=== PATIENT | female | born 1995 | race Caucasian/White ===

== ENCOUNTER 2021-08-05 16:40 | Emergency (ER) | payer OTHER ==
[2021-08-05] MEDS ORDERED: Ondansetron 4 MG/2 ML SDV IVPUSH ONE (17:02)
[2021-08-05] MEDS ORDERED: Sodium Chloride 0.9% 10 ML Syringe FLUSH PRN (17:02)
[2021-08-05] MEDS ORDERED: Sodium Chloride 0.9% 1,000 ML IV SCH (17:15)
--- NOTE | 2021-08-05 18:07 | EDM.PDOC ---
ED HPI GENERAL MEDICAL PROBLEM - General Chief Complaint: Abdominal Pain Stated Complaint: abdominal pain, back pain, covid, UTI Time Seen by Provider: 08/05/21 17:00 Source of Information: Reports: Patient History Limitations: Reports: No Limitations - History of Present Illness INITIAL COMMENTS - FREE TEXT/NARRATIVE: Patient presents to the ED with abdominal pain, nausea, covid 19 symtpoms and positive test on 07/31. She was seen on 07/31 when the symptoms of body aches, cough, shortness of breath, headache, fevers, loss of appetite started. She has had one dose of covid vaccine about 2 weeks prior to illness starting. She was at home, quarantining and not eating or drinking well when she developed dysuria and lower back pain. She had a telehealth visit and was started on cipro 500 mg bid for her symptoms but no urine was done. LMP started today, does not usually get cramps or low back pain. Normal bowel movement three days ago which is typical for her. No vaginal discharge, does not think she is . she started to have worse lower pelvic pain today and continued low back pain. Not eating or drinking as well as she should Onset Date: 08/04/21 Abdominal Pain Score (Numeric/FACES): 6 - Related Data Allergies Allergy/AdvReac Type Severity Reaction Status Date / Time No Known Allergies Allergy Verified 08/05/21 16:52 Home Meds: Home Meds Ciprofloxacin HCl [Cipro] 500 mg PO BID 08/05/21 [History] Past Medical History - Past Health History Medical/Surgical History: Denies Medical/Surgical History - Past Surgical History HEENT Surgical History: Reports: Tonsillectomy Female Surgical History: Reports: Section Social & Family History - Tobacco Use Tobacco Use Status *Q: Never Tobacco User - Recreational Drug Use Recreational Drug Use: No Drug Use in Last 12 Months: No ED ROS GENERAL - Review of Systems Review Of Systems: See Below Constitutional: Reports: Fever, Chills, Malaise, Weakness, Fatigue, Decreased Appetite HEENT: Reports: Other (loss of taste and smell). Denies: Nosebleed, Nose Pain, Rhinitis, Sinus Problem, Throat Pain Respiratory: Reports: Shortness of Breath, Cough. Denies: Wheezing, Pleuritic Chest Pain, Sputum, Hemoptysis Cardiovascular: Reports: Dyspnea on Exertion, Lightheadedness. Denies: Chest Pain GI/Abdominal: Reports: Abdominal Pain, Anorexia, Constipation, Decreased Appetite, Nausea. Denies: Black Stool, Bloody Stool, Diarrhea, Vomiting Musculoskeletal: Reports: Back Pain Skin: Reports: No Symptoms Neurological: Reports: Headache ED EXAM, GI/ABD - Physical Exam Exam: See Below Exam Limited By: No Limitations General Appearance: Alert, WD/WN, No Apparent Distress Eyes: Bilateral: Normal Appearance, EOMI Ears: Normal External Exam Nose: Normal Inspection, Normal Mucosa Throat/Mouth: Normal Lips, Normal Voice, Other (mild dry mucous membranes) Neck: Normal Inspection, Supple Respiratory/Chest: No Respiratory Distress, Lungs Clear, Normal Breath Sounds, Chest Non-Tender Cardiovascular: Normal Peripheral Pulses, Regular Rate, Rhythm, No Edema, No Murmur GI/Abdominal Exam: Normal Bowel Sounds, Soft, Non-Tender, No Abnormal Bruit, No Mass. No: Rigid, Rebound, Tender, Abnormal Bowel Sounds Extremities: Normal Inspection, Normal Range of Motion, Non-Tender, No Pedal Edema, Normal Capillary Refill Neurological: Alert, Oriented, CN II-XII Intact, Normal Cognition, No Motor/Sensory Deficits Course - Vital Signs Last Recorded V/S: Last Vital Signs Temp 36.3 C 08/05/21 19:26 Pulse 83 08/05/21 19:26 Resp 16 08/05/21 19:26 BP 123/64 08/05/21 19:26 Pulse Ox 98 08/05/21 19:26 - Orders/Labs/Meds Orders: Active Orders 24 hr Category Date Time Status Nurse Communication: Isolation [RC] ASDIRECTED Care 08/05/21 17:02 Active Peripheral IV Care [RC] . DIRECTED Care 08/05/21 17:02 Active Abdomen Pelvis w Cont [CT] Stat Exams 08/05/21 18:35 Taken Sodium Chloride 0.9% [Normal Saline] 1,000 ml Med 08/05/21 17:15 Active IV ASDIRECTED Sodium Chloride 0.9% [Saline Flush] Med 08/05/21 17:02 Active 10 ml FLUSH ASDIRECTED PRN Isolation [COMM] Routine Oth 08/05/21 17:02 Active Peripheral IV Insertion Adult [OM.PC] Routine Oth 08/05/21 17:02 Ordered Medication Orders Sodium Chloride (Normal Saline) 1,000 mls @ 999 mls/hr IV ASDIRECTED ALEXEI Last Admin: 08/05/21 17:40 Dose: 999 mls/hr Documented by: NIGHAT Sodium Chloride (Sodium Chloride 0.9% 10 Ml Syringe) 10 ml FLUSH ASDIRECTED PRN PRN Reason: Keep Vein Open Labs: Laboratory Tests 08/05/21 08/05/21 08/05/21 Range/Units 17:45 17:45 17:45 WBC 4.3 (4.0-10.2) K/uL RBC 4.55 (3.77-5.09) M/uL Hgb 8.3 L D (11.7-15.5) g/dL Hct 28.6 L (34.0-46.0) % MCV 62.9 L D (84.0-98.0) fL MCH 18.2 L (28.2-33.3) pg MCHC 29.0 L (31.7-36.0) g/dL RDW 21.3 H (11.2-14.1) % Plt Count 377 H (150-350) K/uL Neut % (Auto) 73.9 (45.0-80.0) % Lymph % (Auto) 17.0 (10.0-50.0) % Haines % (Auto) 9.1 (2.0-14.0) % Eos % (Auto) 0.0 (0.0-5.0) % Baso % (Auto) 0.0 (0.0-2.0) % Neut # (Auto) 3.17 (1.40-7.00) K/uL Lymph # (Auto) 0.73 (0.50-3.50) K/uL Haines # (Auto) 0.39 (0.00-1.00) K/uL Eos # (Auto) 0.00 (0.00-0.50) K/uL Baso # (Auto) 0.00 (0.00-0.20) K/uL Sodium 144 (136-145) mmol/L Potassium 3.8 (3.5-5.1) mmol/L Chloride 108 H (98-107) mmol/L Carbon Dioxide 22.3 (21.0-32.0) mmol/L Anion Gap 17.5 H (7-15) meq/L BUN 18 (7-18) mg/dL Creatinine 1.13 (0.51-1.17) mg/dL Est Cr Clr Drug Dosing 59.67 mL/min Estimated GFR (MDRD) 58 mL/min Glucose 86 (70-99) mg/dL Lactic Acid (0.4-2.0) mmol/L Calcium 8.4 L (8.5-10.1) mg/dL Total Bilirubin 0.2 (0.2-1.0) mg/dL AST 26 (15-37) U/L ALT 16 (12-78) U/L Alkaline Phosphatase 58 (46-116) IU/L C-Reactive Protein 4.4 H (<=0.9) mg/dL Total Protein 7.1 (6.4-8.2) g/dL Albumin 3.7 (3.4-5.0) g/dL Lipase 94 (73-393) U/L HCG, Qual Negative (NEGATIVE) Specimen Type Urine Color Urine Appearance Urine pH (5.0-9.0) Ur Specific [place] (1.005-1.030) Urine Protein (NEGATIVE) mg/dL Urine Glucose (UA) (NEGATIVE) mg/dL Urine Ketones (NEGATIVE) mg/dL Urine Occult Blood (NEGATIVE) Urine Nitrite (NEGATIVE) Urine Bilirubin (NEGATIVE) Urine Urobilinogen (0.2-1.0) E.U./dL Ur Leukocyte Esterase (NEGATIVE) Urine RBC /HPF Urine WBC /HPF Ur Epithelial Cells /LPF Urine Bacteria (NONE TO FEW) /HPF 08/05/21 08/05/21 Range/Units 17:45 18:30 WBC (4.0-10.2) K/uL RBC (3.77-5.09) M/uL Hgb (11.7-15.5) g/dL Hct (34.0-46.0) % MCV (84.0-98.0) fL MCH (28.2-33.3) pg MCHC (31.7-36.0) g/dL RDW (11.2-14.1) % Plt Count (150-350) K/uL Neut % (Auto) (45.0-80.0) % Lymph % (Auto) (10.0-50.0) % Haines % (Auto) (2.0-14.0) % Eos % (Auto) (0.0-5.0) % Baso % (Auto) (0.0-2.0) % Neut # (Auto) (1.40-7.00) K/uL Lymph # (Auto) (0.50-3.50) K/uL Haines # (Auto) (0.00-1.00) K/uL Eos # (Auto) (0.00-0.50) K/uL Baso # (Auto) (0.00-0.20) K/uL Sodium (136-145) mmol/L Potassium (3.5-5.1) mmol/L Chloride (98-107) mmol/L Carbon Dioxide (21.0-32.0) mmol/L Anion Gap (7-15) meq/L BUN (7-18) mg/dL Creatinine (0.51-1.17) mg/dL Est Cr Clr Drug Dosing mL/min Estimated GFR (MDRD) mL/min Glucose (70-99) mg/dL Lactic Acid 0.8 (0.4-2.0) mmol/L Calcium (8.5-10.1) mg/dL Total Bilirubin (0.2-1.0) mg/dL AST (15-37) U/L ALT (12-78) U/L Alkaline Phosphatase (46-116) IU/L C-Reactive Protein (<=0.9) mg/dL Total Protein (6.4-8.2) g/dL Albumin (3.4-5.0) g/dL Lipase (73-393) U/L HCG, Qual (NEGATIVE) Specimen Type Urincc Urine Color Yellow Urine Appearance Slightly cloudy Urine pH 5.0 (5.0-9.0) Ur Specific [place] 1.015 (1.005-1.030) Urine Protein 30 H (NEGATIVE) mg/dL Urine Glucose (UA) Negative (NEGATIVE) mg/dL Urine Ketones 15 H (NEGATIVE) mg/dL Urine Occult Blood Large H (NEGATIVE) Urine Nitrite Negative (NEGATIVE) Urine Bilirubin Negative (NEGATIVE) Urine Urobilinogen 0.2 (0.2-1.0) E.U./dL Ur Leukocyte Esterase Negative (NEGATIVE) Urine RBC >100 H /HPF Urine WBC 5-10 H /HPF Ur Epithelial Cells Few /LPF Urine Bacteria Few (NONE TO FEW) /HPF Meds: Medications Generic Name Dose Route Start Last Admin Trade Name Freq PRN Reason Stop Dose Admin Sodium Chloride 1,000 mls @ 999 mls/hr 08/05/21 17:15 08/05/21 17:40 Normal Saline IV 999 mls/hr ASDIRECTED ALEXEI Administration Sodium Chloride 10 ml 08/05/21 17:02 Sodium Chloride 0.9% 10 Ml Syringe FLUSH ASDIRECTED PRN Keep Vein Open Discontinued Medications Generic Name Dose Route Start Last Admin Trade Name Freq PRN Reason Stop Dose Admin Iopamidol 100 ml 08/05/21 18:41 Iopamidol 612 Mg/Ml 100 Ml Bottle IVPUSH 08/05/21 18:42 ONETIME ONE Iopamidol Confirm 08/05/21 18:47 08/05/21 19:17 Iopamidol 612 Mg/Ml 100 Ml Bottle Administered 08/05/21 18:48 100 ml Dose Administration 100 ml .ROUTE .STK-MED ONE Ondansetron HCl 4 mg 08/05/21 17:02 08/05/21 17:40 Ondansetron 4 Mg/2 Ml Sdv IVPUSH 08/05/21 17:03 4 mg ONETIME ONE Administration - Radiology Interpretation Free Text/Narrative:: Ct of the abdomen and pelvis with no acute abnormality in amira abdomen or pelvis. a few small groudnglass opacities in the lung bases consistent with covid 19. interpreted by radiologist - Re-Assessments/Exams Free Text/Narrative Re-Assessment/Exam: cannot reproduce pain,. isolation due to covid 19. Will check urine, , labs, give iv fluids and zofran. 08/05/21 18:15 08/05/21 20:20 reassured patient that no acute findings, thisi s probably due to covid 19. encourage hydration, quarantine and will send home with zofran odt,. Departure - Departure Time of Disposition: 20:14 Disposition: Home, Self-Care 01 Condition: Good Clinical Impression: Abdominal pain, COVID-19, Nausea - Discharge Information *PRESCRIPTION DRUG MONITORING PROGRAM REVIEWED*: Not Applicable *COPY OF PRESCRIPTION DRUG MONITORING REPORT IN PATIENT HELEN: Not Applicable Instructions: Nausea, Adult, COVID-19 Frequently Asked Questions, 10 Things You Can Do to Manage Your COVID-19 Symptoms at Home - [facility] (03/07/2021), COVID-19: How to Protect Yourself and Others - CDC, COVID-19: What to Do If You Are Sick- [facility] (11/06/2020) Referrals: Cierra Hannah NP [Primary Care Provider] - Forms: ED Department Discharge Additional Instructions: Testing today did not reveal another source other than covid 19 for your abdominal pain. Continue to quarantine for the 10 days and longer if you are still ill. You need to hydrate well and try to eat some protein. use the zofran to help with nausea. Sepsis Event Note (ED) - Evaluation Sepsis Screening Result: No Definite Risk - Focused Exam Vital Signs: Vital Signs Temp Pulse Resp BP Pulse Ox 08/05/21 19:26 36.3 C 83 16 123/64 98 08/05/21 16:49 36.3 C 90 16 132/76 98 - My Orders Last 24 Hours: My Active Orders 08/05/21 17:02 Nurse Communication: Isolation [RC] ASDIRECTED Peripheral IV Care [RC] . DIRECTED Sodium Chloride 0.9% [Saline Flush] 10 ml FLUSH ASDIRECTED PRN Isolation [COMM] Routine Peripheral IV Insertion Adult [OM.PC] Routine 08/05/21 17:15 Sodium Chloride 0.9% [Normal Saline] 1,000 ml IV ASDIRECTED 08/05/21 18:35 Abdomen Pelvis w Cont [CT] Stat - Assessment/Plan Last 24 Hours: My Active Orders 08/05/21 17:02 Nurse Communication: Isolation [RC] ASDIRECTED Peripheral IV Care [RC] . DIRECTED Sodium Chloride 0.9% [Saline Flush] 10 ml FLUSH ASDIRECTED PRN Isolation [COMM] Routine Peripheral IV Insertion Adult [OM.PC] Routine 08/05/21 17:15 Sodium Chloride 0.9% [Normal Saline] 1,000 ml IV ASDIRECTED 08/05/21 18:35 Abdomen Pelvis w Cont [CT] Stat
[2021-08-05 18:21] LABS: ANION GAP 17.5 meq/L (7-15)
[2021-08-05] MEDS ORDERED: Iopamidol 612 MG/ML 100 ML Bottle IVPUSH ONE (18:41)
[2021-08-05] MEDS ORDERED: Iopamidol 612 MG/ML 100 ML Bottle ONE (18:47)
[2021-08-05 19:26] VITALS: BP 123/64; PULSE 83
== END 2021-08-05 20:30 | disposition home or self-care (01) ==
LOC: LL.ED 16:40
DX: U07.1 COVID-19 (principal); R10.2 Pelvic and perineal pain
CPT/HCPCS: 36415; 74177; 80053; 81001; 83605; 83690; 84703; 85025; 86140; 96374; 99283; 99284-25; J2405; J7030; Q9967